=== PATIENT | female | born 1980 | race Caucasian/White ===

== ENCOUNTER 2016-09-13 23:05 | Emergency (ER) | payer OTHER, MEDICAID ==
[~2016-09-13] VITALS: Ht 172.7 cm; Wt 67.0 kg
[~2016-09-13 23:05] MED LIST: CEPH500C3 PO; HYDRO2.5%T TOP; MICO2CRE4 TOP
[2016-09-13 23:07] VITALS: BP 152/89; PULSE 62; RESP 14; TEMP 98.2; O2SAT 100
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
[2016-09-14] MEDS ORDERED: NAPR500 PO (00:16)
[2016-09-14] MEDS ORDERED: CYCL1TAB29 PO (00:16)
== END 2016-09-14 01:25 | disposition home or self-care (01) ==
LOC: NEPB 23:05
DX: S09.90XA Unspecified injury of head, initial encounter (principal); S16.1XXA Strain of muscle, fascia and tendon at neck level, initial encounter; S39.012A Strain of muscle, fascia and tendon of lower back, initial encounter; M41.85 Other forms of scoliosis, thoracolumbar region; M41.84 Other forms of scoliosis, thoracic region; V49.88XA Car occupant (driver) (passenger) injured in other specified transport accidents, initial encounter; Y92.410 Unspecified street and highway as the place of occurrence of the external cause
CPT/HCPCS: 70450; 72072; 72100; 72125